=== PATIENT | female | born 1955 | race Caucasian/White ===

== ENCOUNTER → 2018-08-14 15:02 | Outpatient (CLI) | payer OTHER, SELFPAY | PROVIDERS: PCP Nurse Practitioner Family; Visit Provider Nurse Practitioner Family | DX: M85.852 Other specified disorders of bone density and structure, left thigh (principal); Z78.0 Asymptomatic menopausal state | CPT/HCPCS: 77080 ==

== ENCOUNTER → 2019-08-13 06:46 | Outpatient (CLI) | payer MEDICARE, SELFPAY ==
--- NOTE | 2019-08-13 | DI.ECHO.S_ITS ---
[facility] +---------+ : : [address] [place] : : : : [id number] : : : : Phone: [phone]+ Echocardiogram Report + + :Name: MILLIE OCHOA Study Date: 08/13/2019 Height: 64 in : :[facility] Weight: 169 lb : : Gender: Female BSA: 1.8 m2 : :: 1955 Age: 64 yrs BP: 138/98 mmHg: :Reason For Study: Conduction Disorder : : Performed By: Bere Pichardo : :Referring: STEWART LYON : + + Interpretation Summary 1) Normal left ventricular thickness, size, wall motion, and systolic function (EF 60-65%). 2) Grossly, normal right ventricular size and function. 3) There is mild aortic regurgitation. 4) Hypertension present during the study (BP 138/98mmHg). 5) No prior Echo available for comparison. Procedure: A two-dimensional transthoracic echocardiogram with color flow and Doppler was performed. The study quality was technically adequate. There is no prior echocardiogram noted for this patient. The patient was in normal sinus rhythm during the exam. Left Ventricle: The left ventricle is normal in size, wall thickness, and systolic function without any focal wall motion abnormalities. The ejection fraction is estimated to be 60-65%. Diastolic parameters suggest probable normal left ventricular diastolic function and normal filling pressures. Right Ventricle: The right ventricle grossly appears normal in size with probable normal systolic function. Atria: The left atrial size is normal. Right atrial size is normal. The interatrial septum is intact with no evidence for an atrial septal defect. Mitral Valve: The mitral valve is normal in structure and function. There is no mitral regurgitation noted. Aortic Valve: The aortic valve opens well. The aortic valve is mildly calcified. There is no aortic valve stenosis. There is mild aortic regurgitation. Tricuspid Valve: The tricuspid valve is normal in structure and function. There is trace tricuspid regurgitation. The right ventricular systolic pressure is estimated to be at least 20 mmHg based on an estimated right atrial pressure of 3 mm Hg. Pulmonic Valve: The pulmonic valve is not well seen, but is grossly normal. There is trace pulmonic regurgitation. Great Vessels: The aortic root is normal size. The ascending aorta is normal in size. The aortic arch is normal in size. The IVC is of normal diameter and collapses greater than 50% with a sniff. This suggests a low right atrial pressure of 3 mm Hg. Pericardium/ Pleura There is no pericardial effusion. There is no pleural effusion. MMode/2D Measurements & Calculations LVIDd: 4.5 cm Ao root diam: 3.6 cm LVIDs: 2.8 cm Aortic Jxn: 3.3 cm FS: 38.2 % asc Aorta Diam: 3.5 cm EPSS: 0.37 cm Ao Arch Diam (Prox Trans): 3.1 cm IVSd: 0.86 cm LVPWd: 0.68 cm LV diop. diameter/BSA (cm/m^2): 2.5 LV sys. diameter/BSA (cm/m^2): 1.5 LA dimension: 3.3 cm RA long axis: 4.6 cm LA A2 area: 19.6 cm2 RA area: 14.3 cm2 LA A4 area: 16.1 cm2 RA vol: 38.1 ml LA length (vol): 5.0 cm RA : 20.9 ml/m2 LA vol: 53.4 ml IVC diam: 1.7 cm LA vol index: 29.3 ml/m2 RVDd major: 5.7 cm RVD1 (basal): 3.5 cm RVD2 (mid): 2.6 cm Doppler Measurements & Calculations Ao V2 max: 131.1 cm/sec AI P1/2t: 656.3 msec Ao V2 mean: 91.5 cm/sec AI dec slope: 210.1 cm/sec2 Ao max P.9 mmHg Ao mean P.9 mmHg Ao V2 VTI: 32.0 cm MV E max jovany: 78.3 cm/sec TR max jovany: 221.4 cm/sec MV A max jovany: 72.0 cm/sec TR max P.6 mmHg MV E/A: 1.1 PA V2 max: 61.4 cm/sec Med Peak E' Jovany: 7.9 cm/sec PA V2 mean: 39.6 cm/sec E/E' med: 9.9 PA mean P.76 mmHg Lat Peak E' Jovany: 8.0 cm/sec PA Accel Time: 0.15 sec E/E' lat: 9.8 E/e' average: 9.9 MV dec time: 0.20 sec MV P1/2t: 60.9 msec MV P1/2t max jovany: 78.9 cm/sec MVA(P1/2t): 3.6 cm2 Reading Physician:01:12 PM
--- NOTE | 2019-08-13 10:55 | P.PCN_ITS ---
Cardiac Stress Test Report Referral & Results Date Patient Seen: 08/13/19 Requesting provider: Agustina Caraballo Indication: Right bundle branch block Rest ECG: Right bundle verses incomplete right bundle branch block Procedure Note: Today following both written and verbal informed consent, the patient was exercised according to a standard Sravan protocol. The patient exe rcised for a total of 9 minutes 2 seconds achieving a maximum heart rate of 140 for. Patient's maximum systolic blood pressure was 160. This was an estimated 10.1 MET's. There are no ST-T segment changes identified Normal heart rate and blood pressure response Function aerobic impairment way off the scale estimated her at-45% or aerobic capacity equal that of an active 40-year-old woman Rare PAC Impression: No ECG evidence of ischemia in the setting of a patient with underlying ECG abnormalities that may interfere with the ability to detect ischemic change but given patient's time on the treadmill I believe it is extremely unlikely to have any ischemia present Excellent exercise capacity Please note: Actual ECG tracings can be found in the PACS system.
== END ==
PROVIDERS: PCP Nurse Practitioner Family; Visit Provider Nurse Practitioner Family
DX: I35.1 Nonrheumatic aortic (valve) insufficiency (principal); I45.10 Unspecified right bundle-branch block
CPT/HCPCS: 93016; 93017; 93018; 93306

== ENCOUNTER → 2020-03-18 10:59 | Outpatient (CLI) | payer MEDICARE, SELFPAY ==
--- NOTE | 2020-03-18 | DI.MRI.S_ITS ---
PROCEDURE: MR KNEE RT WO CON INDICATIONS: Pain in right knee TECHNIQUE: Noncontrast sagittal PD fast spin echo and T2 fast spin echo with fat saturation, sagittal 3-D FLASH with fat saturation; coronal T1 spin echo and PD fast spin echo with fat saturation, and axial PD fast spin echo with fat saturation through the knee. COMPARISON: [facility] [place], CR, XR KNEE ARTHRITIC SERIES RT, 04/05/2019, 14:26. FINDINGS: Image quality: Excellent. Menisci: The medial extrusion of the medial meniscus. Linear horizontally oriented high T2 signal intensity traverses the posterior horn medial meniscus, demonstrating superior and inferior articular surface extension. Lateral meniscus is intact. Cruciate ligaments: The anterior and posterior cruciate ligaments appear intact. Medial structures: The medial collateral ligament appears intact, but demonstrates mild surrounding T2 signal elevation. Visualized portions of the pes anserinus tendons appear normal. No abnormal bursal fluid. Lateral structures: The lateral collateral ligament demonstrates mild T2 signal elevation of the fibular insertion site. The, long and short heads of the biceps femoris tendon appear intact. The popliteus tendon appears normal. Iliotibial band appears normal. Anterior structures: The quadriceps and patellar tendons appear intact. Patellar alignment is normal. No femoral trochlear dysplasia or ventral trochlear prominence. No edema in the infrapatellar fat pad. Bones and cartilage: No bone marrow contusions or fractures. Moderate tricompartmental periarticular osteophyte formation. Mild subchondral degenerative marrow edema within the medial femoral condyle and medial tibial plateau. Severe articular cartilage loss diffusely overlies the weightbearing aspects of the medial femoral condyle and medial tibial plateau. Mild articular cartilage loss overlies the medial and lateral patellar facets. Joint space: There is a small knee joint effusion and a small Dhaliwal's cyst. Normal appearing synovial plicae are incidentally noted. IMPRESSION: 1. Tricompartmental osteoarthritis with associated articular cartilage loss. 2. MCL strain. 3. Partial thickness tear the lateral collateral ligament. 4. Medial meniscal tear and extrusion. 5. Knee joint effusion and Dhaliwal's cyst. Dictated by: Jacqueline Easton M.D. on 03/18/2020 at 11:50 Approved by: Jacqueline Easton M.D. on 03/18/2020 at 11:53
== END ==
PROVIDERS: PCP Internal Medicine; Referring Provider Internal Medicine; Visit Provider Internal Medicine
DX: M25.561 Pain in right knee (principal); M17.11 Unilateral primary osteoarthritis, right knee; S83.411A Sprain of medial collateral ligament of right knee, initial encounter; S83.421A Sprain of lateral collateral ligament of right knee, initial encounter; S83.241A Other tear of medial meniscus, current injury, right knee, initial encounter; M25.461 Effusion, right knee; M71.21 Synovial cyst of popliteal space [Baker], right knee
CPT/HCPCS: 73721

== ENCOUNTER → 2020-10-29 11:01 | Outpatient (CLI) | payer MEDICARE, SELFPAY ==
--- NOTE | 2020-10-29 | DI.US.S_ITS ---
PROCEDURE: US PELVIC COMPLETE INDICATIONS: POSTMENOPAUSAL BLEEDING TECHNIQUE: Real-time scanning was performed of the pelvic organs, with image documentation. Additional endovaginal scanning was necessary due to incomplete visualization of the adnexal and endometrial structures by transabdominal scanning. COMPARISON: None. FINDINGS: Transabdominal scanning: Limited scanning through the kidneys shows no hydronephrosis. No pathologic free abdominal or pelvic fluid. Endovaginal scanning: Uterus: Uterus is normal in size at 8.5 x 4.4 x 5.8 cm. The endometrium measures 11 mm in combined thickness. No focal lesions can be seen along the endometrial stripe. Ovaries: The right ovary measures 2.7 x 2.1 x 1.7 cm. The left ovary measures 3.5 x 2.5 x 1.8 cm. The ovaries have a normal sonographic appearance. Normal appearing arterial waveforms are confirmed to each ovary. No adnexal masses are seen. IMPRESSION: The endometrial stripe is thickened in this patient with a given history of postmenopausal bleeding. Differential diagnosis includes endometrial neoplasm and endometrial hyperplasia. Recommend correlation with endometrial histology, as clinically appropriate. Dictated by: Daniel Glass M.D. on 10/29/2020 at 12:29 Approved by: Daniel Glass M.D. on 10/29/2020 at 12:30
== END ==
PROVIDERS: PCP Internal Medicine; Referring Provider Internal Medicine; Visit Provider Internal Medicine
DX: N95.0 Postmenopausal bleeding (principal)
CPT/HCPCS: 76830; 76856

== ENCOUNTER 2021-01-07 10:15 | Emergency (ER) | payer MEDICARE, SELFPAY ==
[2021-01-07 10:18] VITALS: BP 150/82; PULSE 89; RESP 14; TEMP 36.9; O2SAT 98; BMI 26.7
--- NOTE | 2021-01-07 10:24 | PC.NURSE ---
pt has discoloration left calf from injury approx 6 months ago.
--- NOTE | 2021-01-07 10:25 | DI.US.S_ITS ---
PROCEDURE: US PERIPH VENOUS LOW EXTREM LT INDICATIONS: PAIN AND SWELLING LEFT LEG TECHNIQUE: Real-time imaging, as well as color and pulse Doppler interrogation, were performed of the lower extremity deep veins from the inguinal ligament to the popliteal fossa. COMPARISON: None. FINDINGS: The common femoral, femoral and popliteal veins are normally compressible, and free of intraluminal thrombus. Color and pulse Doppler demonstrate normal phasic intraluminal flow. There is normal augmentation response to distal compression maneuver. Additional, dedicated ultrasound scanning is performed at the area of clinical concern at the left posterior/inferior calf/ankle. No focal ultrasound abnormalities are seen within this region. IMPRESSION: Negative for deep venous thrombosis. Dictated by: Daniel Glass M.D. on 01/07/2021 at 10:07 Approved by: Daniel Glass M.D. on 01/07/2021 at 10:08
--- NOTE | 2021-01-07 10:26 | ED.EXTPRO ---
HPI - Extremity Problem General Chief complaint: Extremity Problem,Nontraumatic Stated complaint: left lower leg x3 days Time Seen by Provider: 01/07/21 10:17 Source: patient Mode of arrival: Ambulatory Limitations: no limitations History of Present Illness HPI Narrative: 65-year-old postmenopausal woman otherwise healthy presents with left calf pain. She notes that 6 months ago she had a mechanical injury were gait hit her in the back of the calf she was expecting to find laceration but was only bruised. It has continued with visible bruising since that point and over the last 3 days the bruising has become more prominent, swelling has gotten a bit worse and pain has become much more difficult to ignore. She describes severe pain and cramping at night. She is still able to walk and describes no other injuries. She has had no fevers, cough, chills, palpitations or dyspnea. She does note that she has been increasingly anxious over the swelling in her leg with concerns for DVT as she does live on a non [facility]. She has had no vomiting, diarrhea or skin changes. No numbness or tingling distally. Related Data Previous Rx's Medication Instructions Recorded progesterone micronized 200 mg 200 mg PO BEDTIME 30 Days #30 cap 11/28/20 capsule Allergies Allergy/AdvReac Type Severity Reaction Status Date / Time No Known Drug Allergies Allergy Verified 01/07/21 10:21 Review of Systems Review of Systems Narrative: Remainder of review of systems including constitutional, ENT, cardiovascular, respiratory, GI, , musculoskeletal, skin, neurologic and psychiatric systems reviewed and are unremarkable except as noted in HPI. Patient History Medical History On hormone replacement therapy Social History Smoking Status: Unknown if ever smoked Smoking Status: Unknown if ever smoked alcohol intake frequency: 0-2 drinks per day Substance Use Type: does not use Exam Narrative Exam Narrative: General: Alert appropriate in no acute distress Respiratory: Able to speak in full sentences, no obvious respiratory distress Skin: No obvious rashes, warm and dry Neurologic: Grossly intact no obvious asymmetries or abnormalities Psych:appropriate insight and affect, cooperative Extremity: Left lower extremity slightly more swollen than the right. Recent Efudex use for both calves so skin changes as would be expected. She does have a 3 x 3 area of bruising on the distal posterior calf without any bruising down around the ankle or heel. There is no tenderness to palpation or manipulation of her Achilles tendon and she has no tenderness with range of motion of the foot. Initial Vital Signs Initial Vital Signs: Vital Signs Temperature 98.4 F 01/07/21 10:18 Pulse Rate 89 01/07/21 10:18 Respiratory Rate 14 01/07/21 10:18 Blood Pressure 150/82 H 01/07/21 10:18 Pulse Oximetry 98 01/07/21 10:18 Course Orders Ordered: ED Orders 01/07/21 10:25 US periph venous low extrem lt Stat Vital Signs Vital signs: Vital Signs - 8 hr 01/07/21 10:18 Temperature 98.4 F Pulse Rate 89 Respiratory Rate 14 Blood Pressure 150/82 H Pulse Oximetry 98 MDM - Extremity (Nontraumatic) Imaging Data US - DVT: Radiologist's Impression: FINDINGS: The common femoral, femoral and popliteal veins are normally compressible, and free of intraluminal thrombus. Color and pulse Doppler demonstrate normal phasic intraluminal flow. There is normal augmentation response to distal compression maneuver. Additional, dedicated ultrasound scanning is performed at the area of clinical concern at the left posterior/inferior calf/ankle. No focal ultrasound abnormalities are seen within this region. IMPRESSION: Negative for deep venous thrombosis. Dictated by: Daniel Glass M.D. on 01/07/2021 at 10:07 [facility] Narrative Medical decision making narrative: 65-year-old woman with an injury to the left calf 6 months ago but significant change to pain overall 3 days ago. She does not have a deep venous thrombosis Will suggest ibuprofen and Tylenol along with compression socks. Will refer her to Orthopedic surgery for further evaluation if she is still having pain and tenderness in the next week. The next step in sorting this out may well be advanced imaging and possibly MRI. She is safe for home discharge today Discharge Plan Departure Patient Disposition: Home Clinical Impression: Pain of left calf Instructions: DI for Leg Pain Activity Restrictions/Additional Instructions: Thank you for coming in today You do not have a blood clot in your leg I suspect that you simply re-injured your calf about 3 days ago and the swelling in fullness is what is causing the severity of the pain and cramping at night. Please try compression socks ([employer] has a good supply of running compression socks that are far more comfortable than medical ones). Using 400 mg of ibuprofen (2 [id number] pills) and 1 Tylenol every 6 hours can be very helpful in controlling pain. Elevating her leg can also help. Please schedule appointment for mid next week with the orthopedic office. If you are still having symptoms please follow-up. If everything has improved by then you can cancel that appointment. If things worsen, please return to the ER Prescriptions: No Action progesterone micronized [Prometrium] 200 mg capsule 200 mg PO BEDTIME 30 Days Qty: 30 RF: 11 Referrals: Gita Og MD [Physician] - Alessandra Cortés MD [Primary Care Provider] -
[2021-01-07 11:50] VITALS: BP 136/77; PULSE 59; RESP 20; O2SAT 94
== END 2021-01-07 12:01 | disposition home or self-care (01) ==
PROVIDERS: Emergency Provider Emergency Medicine; PCP Family Medicine
DX: M79.662 Pain in left lower leg (principal)
CPT/HCPCS: 93971; 99283

== ENCOUNTER → 2021-03-11 08:01 | Outpatient (CLI) | payer MEDICARE, SELFPAY ==
[2021-03-11 14:52] LABS: COVID19 -Nasal RAPID Negative (Negative)
== END ==
PROVIDERS: PCP Family Medicine; Visit Provider Obstetrics & Gynecology
DX: Z01.812 Encounter for preprocedural laboratory examination (principal); Z20.822 Contact with and (suspected) exposure to COVID-19
CPT/HCPCS: 87635

== ENCOUNTER 2021-03-12 08:21 | Day surgery (SDC) | payer MEDICARE, SELFPAY ==
[2021-03-09 13:25] VITALS: BMI 28.3
[2021-03-12] VITALS (7 sets, daily range): BP systolic 104–145; BP diastolic 67–89; PULSE 56–59; RESP 12–20; TEMP 36.3–37; O2SAT 95–100; BMI 26.9
--- NOTE | 2021-03-12 | PATH_ITS ---
[facility] Accession Number: [id number] . 01 Material submitted: . endometrium - ENDOMETRIAL CURETTING . 01 Clinical history: . D/C HYSTEROSCOPY W/POSS POLYPECTOMY . 02 Diagnosis: Endometrial Curetting: Portions of endometrial stromal tissue with very scant endometrial glandular elements; negative for glandular hyperplasia, cytologic atypia, or malignancy. Portions of lower uterine segment; negative for glandular hyperplasia, glandular dysplasia, cytologic atypia, or malignancy. MRV 03/18/2021 1353 Local . 02 Electronically signed: . Marysol Lawson MD, Pathologist NPI- [id number] . 01 Gross description: . The specimen is received in formalin labeled endometrial biopsy and consists of multiple lopez-pink fragments of soft tissue admixed with mucus, measuring 3.0 x 2.5 x 0.4 cm in aggregate. The specimen is filtered and entirely submitted in cassette A1. ([id number]) /[facility] 03/13/2021 1644 Local . 02 Pathologist provided ICD-10: N85.00, N95.0 . 02 CPT . 316753 Performed at: 01 [facility] [address], [place], [place] [id number] MD Jona Sanford MD Phone: [phone] Performed at: 02 [facility] [address] [place], [place] [id number] MD Bhumi Cardozo MD Phone: [phone]
--- NOTE | 2021-03-12 08:40 | PM.PREOP ---
Pre-operative Note COVID-19 COVID-19 status: Negative Result date/Date tested (Pos, Neg/Pending): 03/11/21 Interval Note History & Physical reviewed/Exam performed by Physician: Yes Changes to H&P: No H&P completed within 30 days and has changed as indicated here:: 03/12/21
--- NOTE | 2021-03-12 08:50 | SUR.OPER ---
Lithotomy on padded OR bed, head on pillow, arms secured on padded arm boards at <90 degrees abduction. Legs secured in padded yellow fins stirrups.
[2021-03-12] MEDS: LACTATED RINGERS 1,000 ML 100 ML IV (08:51)
--- NOTE | 2021-03-12 09:03 | PM.HP.1 ---
History of Present Illness History of Present Illness Date Patient Seen: 03/12/21 Time Patient Seen: 09:03 Chief complaint: D&C HYSTEROSCOPY W/POSS POLYPECTOMY Narrative: Patient is a 65-year-old 2 para 2 who presents for a D&C hysteroscopy with possible polypectomy. She has had a thickened endometrial lining and postmenopausal bleeding. Patient History Medical History On hormone replacement therapy Family & Social History Social History: household members spouse Tobacco & Substance use: Smoking Status Never smoker alcohol intake current alcohol intake frequency 0-2 drinks per day Substance Use Type does not use Meds Home Medications and Allergies Home Medications Medication Instructions Recorded Confirmed Type progesterone micronized 200 mg 200 mg PO BEDTIME 30 Days #30 cap 11/28/20 03/12/21 Rx capsule estradiol 1 patch TRANSDERMAL WEEKLY 03/12/21 03/12/21 History Allergies Allergy/AdvReac Type Severity Reaction Status Date / Time No Known Drug Allergies Allergy Verified 02/11/21 14:12 Exam Vital Signs (past 8 hours): - 03/12/21 08:51 Temperature 98.6 F Pulse Rate 59 L Respiratory Rate 12 Blood Pressure 132/81 Pulse Oximetry 99 Oxygen Delivery Method Room Air Narrative Exam Narrative: HEENT: No thyromegaly, no anterior cervical or supraclavicular lymphadenopathy. Lungs:Clear to auscultation bilaterally, no wheezes. Cardiovascular: Regular rate and rhythm, no murmurs, rubs, or gallops. Abdomen: No scars. No hepatosplenomegaly. No masses palpable. External genitalia: Normal Vagina: Normal Cervix: Normal Bimanual exam: 7 Week size uterus. Mobile. No adnexal masses or tenderness. Ultrasound: 11 mm endometrial lining Assessment & Plan Assessment & Plan narrative: Assessment: 65-year-old 2 para 2 with endometrial hyperplasia and postmenopausal bleeding Plan: D&C hysteroscopy with possible polypectomy The risks, benefits, and alternatives to the procedure were explained to the patient. The risks including bleeding, infection, and uterine perforation. She understands these risks and agrees to proceed. A full par Q was held and consent form was signed. COVID-19 COVID-19 status: Negative Result date/Date tested (Pos, Neg/Pending): 03/11/21 Time Spent With Patient Time with patient: less than 15 minutes
--- NOTE | 2021-03-12 09:37 | PM.GYNOP.1 ---
Operative Date/Time/Diagnoses Date of procedure: 03/12/21 Time of procedure: 09:37 Pre-op diagnosis: Endometrial hyperplasia Postmenopausal bleeding Post-op diagnosis: same Procedure & Clinicians Procedure: Procedures Operation Date: 03/12/21 11:00 Actual Procedures Side Surgeon p D&C Hysteroscopy Malgorzata Hannah MD Indications: Postmenopausal bleeding Endometrial hyperplasia by ultrasound Surgeon: Malgorzata Hannah Anesthesia Type: General (LMA) Operative Notes Findings: Eight week size anteverted uterus Both fallopian tube ostia observed Synechiae at the left cornua Slightly thickened lining on the anterior wall of the uterus Closure Type: not applicable Specimen(s): endometrial curettings Estimated blood loss (mL): 5 Blood products transfused: none Procedure in detail: After informed consent was obtained, the patient was taken to the operating room where she was placed in the dorsal supine position. After adequate LMA general anesthesia was achieved, she was placed in the dorsal lithotomy position, and prepped and draped in the usual sterile fashion. A time-out was performed. A bivalve speculum was placed into the vagina and the anterior lip of the cervix grasped with a single-tooth tenaculum. The cervical os was sequentially dilated to the # 9 Hegar dilator. The hysteroscope passed easily into the endometrial cavity. Both fallopian tube ostia were observed. There was a synechiae at the left cornua of the uterus. There was slightly thickened endometrium on the anterior wall the uterus near the fundus. The hysteroscope was removed. Sharp curettage was performed yielding moderate amount of endometrial curettings. The instruments were removed from the uterus. Single-tooth tenaculum was removed from the anterior lip of the cervix. The bivalve speculum was removed from the vagina. Sponge, lap, and instrument counts were correct x2. The patient tolerated the procedure well, and was taken to PACU in stable condition. Complications: none Post-operative Condition: stable Disposition: PACU Plan for aftercare: Home after recovery
--- NOTE | 2021-03-12 10:21 | SUR.PHASEII ---
Pt given discharge instructions. Pt states she understands discharge instructions. pt states her pain is very tolerable and refused medication. Pt very pleasant and cooperative and states she is ready to go home.
--- NOTE | 2021-03-12 10:23 | SUR.PHASEII ---
Pt discharged with Alina FINN.
== END 2021-03-12 10:23 | disposition home or self-care (01) ==
PROVIDERS: PCP Family Medicine; Referring Provider Obstetrics & Gynecology; Visit Provider Obstetrics & Gynecology
PROC: 0UDB8ZZ Extraction of Endometrium, Via Natural or Artificial Opening Endoscopic (ICD-10-PCS; CPT 58558; principal; 2021-03-12 11:00)
DX: N95.0 Postmenopausal bleeding (principal); N85.00 Endometrial hyperplasia, unspecified
CPT/HCPCS: 58558; J1100; J1885; J2405; J2704; J3010

== ENCOUNTER → 2021-06-25 10:37 | Outpatient (CLI) | payer MEDICARE, SELFPAY ==
--- NOTE | 2021-06-25 | DI.RAD.S_ITS ---
PROCEDURE: XR DEXA AXIAL SKELETON INDICATIONS: OSTEOPENIA COMPARISON: [facility], CR, XR DEXA AXIAL SKELETON, 08/14/2018, 15:43. FINDINGS: This blank DEXA report has been sent in error by the PACS system. The correct and complete report will be forthcoming in 1-2 days. Thank you for your patience and understanding. Dictated by: Anjana Lovelace MD, PhD on 06/25/2021 at 10:52 Approved by: Anjana Lovelace MD, PhD on 06/25/2021 at 10:52
== END ==
PROVIDERS: PCP Family Medicine; Referring Provider Family Medicine; Visit Provider Family Medicine
DX: M85.852 Other specified disorders of bone density and structure, left thigh (principal)
CPT/HCPCS: 77080

== ENCOUNTER → 2021-08-27 16:21 | Outpatient (CLI) | payer MEDICARE, SELFPAY ==
--- NOTE | 2021-08-27 16:22 | DI.MG.S_ITS ---
BILATERAL DIGITAL SCREENING MAMMOGRAM 3D/2D WITH CAD: 08/27/2021 Comparison is made to exams dated: 05/03/2017 mammogram - out side, 06/02/2015 mammogram, 11/20/2012 mammogram, 11/20/2012 ultrasound, and 03/24/2012 mammogram - outside location. The tissue of both breasts is heterogeneously dense. This may lower the sensitivity of mammography. Current study was also evaluated with a Computer Aided Detection (CAD) system. There are benign vascular calcifications in the left breast. No significant masses, calcifications, or other findings are seen in either breast. There has been no significant interval change. IMPRESSION: BENIGN There is no mammographic evidence of malignancy. A 1 year screening mammogram is recommended. This exam was interpreted at Station ID: [id number]. NOTE: For mammograms, a report in lay terms will be sent to the patient. Approximately 15% of breast malignancies will not be visualized mammographically. In the management of a palpable breast mass, a negative mammogram must not discourage biopsy of a clinically suspicious lesion. Electronically Signed By: Cayla chatman/kim:08/28/2021 09:07:27 letter sent: Normal Exam ACR BI-RADS Category 2: Benign Finding(s) [id number]
== END ==
PROVIDERS: PCP Family Medicine; Referring Provider Family Medicine; Visit Provider Family Medicine
DX: Z12.31 Encounter for screening mammogram for malignant neoplasm of breast (principal)
CPT/HCPCS: 77063; 77067

== ENCOUNTER → 2022-06-02 16:09 | Outpatient (CLI) | payer MEDICARE, SELFPAY ==
[2022-06-02 17:55] LABS: COVID19 -Nasal RAPID Negative (Negative)
== END ==
PROVIDERS: PCP Family Medicine; Visit Provider Obstetrics & Gynecology
DX: Z20.822 Contact with and (suspected) exposure to COVID-19 (principal); Z01.812 Encounter for preprocedural laboratory examination
CPT/HCPCS: 87635; C9803

== ENCOUNTER 2022-06-03 08:32 | Day surgery (SDC) | payer MEDICARE, SELFPAY ==
[2022-05-31 14:43] VITALS: BMI 29.7
--- NOTE | 2022-06-03 | PATH_ITS ---
[facility] Accession Number: [id number] No. of containers..01 Tissue . 01 Material submitted: . endometrium - ENDOMETRIAL CURETTINGS . 01 Diagnosis: Endometrial Curettings: Portions of myometrium with associated endometrium; negative for atypia or malignancy. Endometrial tissue, negative for glandular hyperplasia, cytologic atypia, or malignancy. Avulsed portion of squamous mucosa; negative for dysplasia or malignancy. . MRV 06/07/2022 1645 Local . 01 Electronically signed: . Marysol Lawson MD, Pathologist NPI- [id number] . 01 Gross description: . ENDOMETRIAL CURETTINGS: Received in formalin are minute fragments of mucoid and hemorrhagic material measuring 3.0 x 2.5 x 0.3 cm in aggregate. Submitted in toto in 2 cassettes. /CPE 06/04/2022 0813 Local . 01 Pathologist provided ICD-10: N95.0 . 01 CPT . 039851 Specimen Comment: A courtesy copy of this report has been sent to [phone] Performed at: [facility] [address] [place] [address], [place], [place] [id number] MD Jona Sanford MD Phone: [phone]
[2022-06-03 08:46] VITALS: BMI 29.7
[2022-06-03 08:53] VITALS: BP 130/80; PULSE 51; RESP 16; TEMP 36.4; O2SAT 99
[2022-06-03] MEDS: LACTATED RINGERS 1,000 ML 42 ML IV ×2 (09:04→11:57)
--- NOTE | 2022-06-03 09:41 | PM.PREOP ---
Pre-operative Note COVID-19 COVID-19 status: Negative Result date/Date tested (Pos, Neg/Pending): 06/02/22 Criteria for continued procedure: Expected advancement of disease process Interval Note History & Physical reviewed/Exam performed by Physician: Yes Changes to H&P: No
--- NOTE | 2022-06-03 09:42 | P.HPOB_ITS ---
History of Present Illness History of Present Illness Reason for admission: vaginal bleeding Narrative: Denisha Beach is a 67 year old para 3 female admitted for hysteroscopy and endometrial ablation for postmenopausal bleeding. Patient has been on hormone replacement therapy. She has had multiple ultrasounds and endometrial biopsy as well as a hysteroscopy D&C in February of 2021 with negative findings. Patient was denied use of Mirena IUD so is here for hysteroscopy with endome trial ablation. [facility] Medical History On hormone replacement therapy Surgical History History of gynecologic surgery (03/12/21) Social History household members: spouse Smoking Status: Never smoker alcohol intake: current Meds Home Medications and Allergies Home Medications Medication Instructions Recorded Confirmed Type estradiol 0.05 mg/24 hr weekly 1 patch transdermal WEEKLY 03/12/21 06/03/22 History transdermal patch progesterone micronized 200 mg See Rx Instructions .Route 12/09/21 06/03/22 Rx capsule .COMPLEX #30 caps Allergies Allergy/AdvReac Type Severity Reaction Status Date / Time No Known Drug Allergies Allergy Verified 06/03/22 08:45 Review of Systems Review of Systems Narrative: Patient denies any current issues with headaches, chest pains or shortness of breath. No abdominal pain. She continues to have bleeding. Exam Vital Signs (past 8 hours): - 06/03/22 08:53 Temperature 97.5 F L Pulse Rate 51 L Respiratory Rate 16 Blood Pressure 130/80 Pulse Oximetry 99 Oxygen Delivery Method Room Air Oxygen Delivery Method Room Air Narrative Exam Narrative: HEENT exam within normal limits. Lungs are clear to auscultation percussion. Heart is regular rate and rhythm no S3-S4 murmurs. Abdomen is soft, nontender with no palpable organomegaly. Pelvic exam was not repeated previous pelvic exams show 7 to 8 week size uterus with no adnexal masses. Extremities without edema and nontender. Assessment & Plan Assessment and plan (1) Postmenopausal bleeding: Status: Acute Assessment & Plan narrative: Patient with postmenopausal bleeding for hysteroscopy and endometrial ablation. Consent form for procedure was reviewed with the patient. Minimal risk of reaction to medication, perforation of the uterus that could require additional surgery or opening the abdomen to repair. Minimal risk of infection. Possibility patient will continue to have bleeding despite the procedure. COVID-19 COVID-19 status: Negative Result date/Date tested (Pos, Neg/Pending): 06/02/22 Time Spent With Patient Time with patient: less than 30 minutes Critical Care time: I spent a total of [] minutes of critical care time on this patient's care today; this time is exclusive of procedural time.
--- NOTE | 2022-06-03 10:19 | SUR.PREOP ---
Addendum entered by Stephy Hassan R.N. 06/03/22 10:24: 06/03/[id number] has call light. no special needs at this time. entertaining self on cellphone. Original Note: 06/03/[id number]-bokwpdc informed case delayed due to emergency 2nd case. patient updated ride with new eta for package pick up.
--- NOTE | 2022-06-03 11:45 | SUR.OPER ---
Lithotomy on padded OR bed, head on pillow, arms secured on padded arm boards at <90 degrees abduction. Legs secured in padded yellow fins stirrups.
--- NOTE | 2022-06-03 12:08 | PM.OP.1 ---
Operative Date/Time/Diagnoses Date of procedure: 06/03/22 Time of procedure: 12:08 Pre-op diagnosis: Postmenopausal bleeding Post-op diagnosis: same Procedure & Clinicians Procedure: Hysteroscopy with endometrial ablation Same procedure as scheduled: Yes (Patient was scheduled for NovaSure which was not working so a loop and ball) Indications: Postmenopausal bleeding Surgeon: Shavon Armendariz Click Yes if Unassisted: Yes Anesthesia Type: General Operative Notes Findings: No obvious intrauterine pathology with normal exam under anesthesia. Closure Type: not applicable Specimen(s): other (Endometrial biopsies) Estimated Blood Loss (mL): 10 Blood products transfused: none Procedure in detail: The patient was brought to the operating room where she underwent general anesthesia. She was placed in low stirrups She was prepped and draped in usual sterile fashion with pulsatile stockings in place and functional, warming in place. Her bladder was drained with in and out catheter. A single-tooth tenaculum was placed on the anterior lip of the cervix and the uterus dilated to #8 Hegar dilator. The hysteroscope was placed into the uterus with a sorbitol solution running and under constant suction. The NovaSure device was not working so the ball cautery set at 60 w of coag was used to cauterize the tubal ostia, fundus and the internal os. The resecting loop set at 80 W of cutting was used to resect the endometrium. The ball cautery was replaced to cauterize any bleeding spots. The endometrial curettage and resection areas were sent to pathology. The patient went to recovery room in good condition counts of instruments and sponges were correct. The sorbitol solution I=O approximately 3000 mL. Complications: none Post-operative Condition: stable Disposition: same day surgery Plan for aftercare: Patient will schedule a telehealth appointment in 2 weeks.
[2022-06-03 12:10] VITALS: BP 146/83; PULSE 67; RESP 17; TEMP 36.4; O2SAT 95
[2022-06-03 12:14] VITALS: BP 144/92; PULSE 62; RESP 16; O2SAT 98
[2022-06-03 12:23] VITALS: BP 146/65; PULSE 60; RESP 16; TEMP 36.3; O2SAT 100
[2022-06-03 12:37] VITALS: BP 138/82; PULSE 54; RESP 16; O2SAT 98
--- NOTE | 2022-06-03 12:42 | SUR.PHASEII ---
unable to contact . Left multiple messages. Pt attempting to call on cell phone.
== END 2022-06-03 12:50 | disposition home or self-care (01) ==
PROVIDERS: PCP Family Medicine; Referring Provider Obstetrics & Gynecology; Visit Provider Specialist
PROC: 0U5B8ZZ Destruction of Endometrium, Via Natural or Artificial Opening Endoscopic (ICD-10-PCS; CPT 58563; principal; 2022-06-03 10:15)
DX: N95.0 Postmenopausal bleeding (principal)
CPT/HCPCS: 58563; J3010

== ENCOUNTER → 2022-09-21 14:32 | Outpatient (CLI) | payer MEDICARE, SELFPAY ==
--- NOTE | 2022-09-21 | DI.MG.S_ITS ---
BILATERAL DIGITAL SCREENING MAMMOGRAM 3D/2D WITH CAD: 09/21/2022 CLINICAL: Routine screening. Comparison is made to exams dated: 08/27/2021 mammogram - [facility], 05/03/2017 mammogram - out side, and 06/02/2015 mammogram - outside location. Both breasts are heterogeneously dense, which may obscure small masses (category c / 51-75% glandular tissue). Current study was also evaluated with a Computer Aided Detection (CAD) system. There are benign vascular calcifications in the left breast. No significant masses, calcifications, or other findings are seen in either breast. There has been no significant interval change. IMPRESSION: BENIGN There is no mammographic evidence of malignancy. A 1 year screening mammogram is recommended. Based on the Tyrer Cuzick model (a risk assessment model) the patient's lifetime risk is 6.3% and her 10 year risk is 3.5%. According to the ACR, ACS, and NCCN guidelines, an annual breast MRI exam along with mammogram is recommended if the patient's lifetime risk is 20% or greater. This exam was interpreted at Station ID: [id number]. NOTE: For mammograms, a report in lay terms will be sent to the patient. Approximately 15% of breast malignancies will not be visualized mammographically. In the management of a palpable breast mass, a negative mammogram must not discourage biopsy of a clinically suspicious lesion. Electronically Signed By: Nickolas tran/kim:09/21/2022 16:37:52 letter sent: Normal Exam ACR BI-RADS Category 2: Benign Finding(s) 3342F
== END ==
PROVIDERS: PCP Family Medicine; Referring Provider Family Medicine; Visit Provider Family Medicine
DX: Z12.31 Encounter for screening mammogram for malignant neoplasm of breast (principal)
CPT/HCPCS: 77063; 77067

== ENCOUNTER → 2023-05-18 17:07 | Outpatient (CLI) | payer MEDICARE, SELFPAY ==
--- NOTE | 2023-05-18 | DI.RAD.S_ITS ---
PROCEDURE: XR FOOT LT 2V INDICATIONS: foot pain TECHNIQUE: 3 views of the foot were acquired. COMPARISON: [facility], CR, XR FOOT 3 VIEWS WEIGHT BEARING BILATERAL, 12/16/2022, 14:43. FINDINGS: Bones: No fractures or dislocations. No suspicious bony lesions. Mild hallux valgus metatarsus prima varus alignment and medial bunion. Mild 1st MTP and diffuse interphalangeal joint space narrowing with mild periarticular osteophyte formation. Soft tissues: No tibiotalar joint effusion. Achilles tendon appears normal. IMPRESSION: 1. Hallux valgus alignment and medial bunion. 2. Mild 1st MTP and diffuse interphalangeal joint degeneration. Dictated by: Tino Goode RR Interpreted: Miko Moreira MD on 05/18/2023 at 20:25 Transcribed by: LEOLA on 05/18/2023 at 20:26 Approved by: Miko Moreira M.D. on 05/19/2023 at 12:54
== END ==
PROVIDERS: PCP Family Medicine; Referring Provider Family Medicine; Visit Provider Family Medicine
DX: M19.072 Primary osteoarthritis, left ankle and foot (principal); M20.12 Hallux valgus (acquired), left foot; M21.612 Bunion of left foot; M79.672 Pain in left foot
CPT/HCPCS: 73620

== ENCOUNTER → 2023-06-09 08:34 | Outpatient (CLI) | payer MEDICARE, SELFPAY ==
--- NOTE | 2023-06-09 | DI.MRI.S_ITS ---
PROCEDURE: MRFOOT LT WO CON INDICATIONS: Pain in left foot TECHNIQUE: Noncontrast sagittal T1 spin echo and T2 fast spin echo with fat saturation, long-axis T1 spin echo and T2 fast spin echo with fat saturation, short-axis T1 spin echo and T2 fast spin echo with fat saturation through the forefoot. COMPARISON: [facility], CR, XR FOOT LT 2V, 05/18/2023, 17:06. FINDINGS: Image quality: Excellent. Bones and joints: Ifem-zc-lnanlqck midfoot and forefoot joint osteoarthritic changes are seen with joint space narrowing, subchondral sclerosis and subcortical cystic changes more notably at 1st MTP joint and 1st interphalangeal joint. There is mild marrow edema involving 2nd and 3rd metatarsal shafts without discrete fracture line. Similar edema involving 1st metatarsal neck is also seen without discrete fracture line. No suspicious bony lesions. Soft tissues: Mild soft tissue edema and swelling over dorsal aspect of 1st through 3rd MTP joint is seen. The visualized plantar foot muscles demonstrate normal signal and bulk. Visualized flexor and extensor tendons appear intact, without tenosynovitis. The distal insertions of the peroneus brevis and longus tendons appear intact. The principal Lisfranc ligament appears intact. No soft tissue ganglion cysts or bursal fluid collections. Sagittal images demonstrate no evidence for plantar plate tears. IMPRESSION: 1. 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 2. Marrow edema involving 1st metatarsal neck, mid to distal shaft of 2nd and 3rd metatarsal bones without definite fracture line. Finding is concerning for abnormal stress reaction versus early stress fracture. Clinical and radiographic follow-up is recommended. 3. Forefoot tendons and ligaments are grossly intact. No gross muscle signal abnormality. Mild soft tissue swelling over dorsal and medial aspect of 1st through 3rd MTP joints. Dictated by: Miko Moreira M.D. on 06/09/2023 at 11:05 Approved by: Miko Moreira M.D. on 06/09/2023 at 11:14
== END ==
PROVIDERS: PCP Family Medicine; Referring Provider Family Medicine; Visit Provider Family Medicine
DX: M19.072 Primary osteoarthritis, left ankle and foot (principal); M79.672 Pain in left foot
CPT/HCPCS: 73718

== ENCOUNTER → 2023-09-30 14:36 | Outpatient (CLI) | payer MEDICARE, SELFPAY ==
--- NOTE | 2023-09-30 | DI.MG.S_ITS ---
BILATERAL DIGITAL SCREENING MAMMOGRAM 3D/2D WITH CAD: 09/30/2023 CLINICAL: Routine screening. Family history of breast cancer. Comparison is made to exams dated: 09/21/2022 mammogram, 08/27/2021 mammogram - [facility], and 05/03/2017 mammogram - out side. Both breasts are heterogeneously dense, which may obscure small masses (category c / 51-75% glandular tissue). Current study was also evaluated with a Computer Aided Detection (CAD) system. No significant masses, calcifications, or other findings are seen in either breast. There has been no significant interval change. IMPRESSION: NEGATIVE There is no mammographic evidence of malignancy. A 1 year screening mammogram is recommended. Based on the Tyrer Cuzick model (a risk assessment model) the patient's lifetime risk is 5.9% and her 10 year risk is 3.5%. According to the ACR, ACS, and NCCN guidelines, an annual breast MRI exam along with mammogram is recommended if the patient's lifetime risk is 20% or greater. This exam was interpreted at Station ID: [id number]. NOTE: For mammograms, a report in lay terms will be sent to the patient. Approximately 15% of breast malignancies will not be visualized mammographically. In the management of a palpable breast mass, a negative mammogram must not discourage biopsy of a clinically suspicious lesion. Electronically Signed By: Christin Marrero M.D., PH.D devi/kim:10/02/2023 14:17:37 letter sent: Normal Exam ACR BI-RADS Category 1: Negative 3341F
--- NOTE | 2023-09-30 | DI.RAD.S_ITS ---
Bone Density Report Name: MILLIE OCHOA Age: 68 Sex: Female Ethnicity: White Date of : 1955 Indication: postmenopausal; screening for osteoporosis; Referring Provider: ОЛЬГА WILLARD Study: Bone densitometry was performed. Exam Date: September 30, 2023 Accession number: [id number] Bone Density: Region BMD T-score Z-score Classification AP Spine(L1-L4) 0.981 -0.6 1.5 Normal Femoral Neck (Left) 0.697 -1.4 0.4 Osteopenia Total Hip (Left) 0.892 -0.4 1.1 Normal Femoral Neck (Right) 0.696 -1.4 0.4 Osteopenia Total Hip (Right) 0.852 -0.7 0.7 Normal Total Hip Mean 0.872 -0.6 0.9 Normal World Health Organization criteria for BMD impression classify patients as: Normal (T-score at or above -1.0), Osteopenia (T-score between -1.0 and -2.5), or Osteoporosis (T-score at or below -2.5). 10-year Fracture Risk(1): Major Osteoporotic Fracture 9.4% Hip Fracture 1.2% Reported Risk Factors: [place] (), Neck BMD=0.696, BMI=29.2 (1) FRAX(R) Version 3.08. Fracture probability calculated for an untreated patient. Fracture probability may be lower if the patient has received treatment. Previous Exams: -- Region Exam Age BMD T-score BMD Change BMD Change Date g/cm2 vs Baseline vs Previous -- AP Spine (L1-L4) 09/30/2023 68 0.981 -0.6 -0.070 (-6.6%)# -0.107 (-9.9%)# 06/25/2021 66 1.088 0.4 0.038 (3.6%)* 0.038 (3.6%)* 08/14/2018 63 1.051 0.0 Total Hip(Left) 09/30/2023 68 0.892 -0.4 0.046 (5.5%)# 0.068 (8.2%)# 06/25/2021 66 0.824 -1.0 -0.022 (-2.5%) -0.022 (-2.5%) 08/14/2018 63 0.846 -0.8 Total Hip(Right) 09/30/2023 68 0.852 -0.7 0.001 (0.2%)# 0.002 (0.3%)# 06/25/2021 66 0.849 -0.8 -0.001 (-0.1%) -0.001 (-0.1%) 08/14/2018 63 0.850 -0.8 -- *Denotes significance at 95% confidence level, LSC for AP Spine = 0.022 g/cm2, LSC for Total Hip = 0.027 g/cm2 # Denotes dissimilar scan types or analysis methods Impression: The patient has low bone mass, based on the Left Femoral Neck T-score. The patient has an estimated ten-year risk of hip fracture of 1.2% and an estimated ten-year risk of major fracture of 9.4%, based on the WHO FRAX algorithm. No significant bone loss was observed. Discussion: BONE DENSITY IS LOW AT ONE OR MORE SKELETAL SITES. This patient's lowest T-score is low at one or more skeletal sites. It meets the World Health Organization's (WHO) criteria for low bone mass (T-score between -1.0 and -2.5). The patient's 10-year risk of fracture as calculated by FRAX is less than the threshold where pharmacological therapy is recommended by the National Osteoporosis Foundation (NOF). However, all treatment decisions require clinical judgment and consideration of individual patient factors, including patient preferences, comorbidities, previous drug use, risk factors not captured in the FRAX model (e.g., frailty, falls, vitamin D deficiency, increased bone turnover, interval significant decline in bone density) and possible under or overestimation of fracture risk by FRAX. The patient should follow a healthful lifestyle (good nutrition with adequate calcium and vitamin D, and appropriate weight-bearing exercise). Follow-Up: Consider repeating this study in 2 to 3 years to reassess this patient's status, or sooner if there is some new clinical indication. Reported by: ADALGISA MIRANDA M.D. on 09/30/2023 3:18:00 PM.
== END ==
PROVIDERS: PCP Family Medicine; Referring Provider Family Medicine; Visit Provider Family Medicine
DX: Z12.31 Encounter for screening mammogram for malignant neoplasm of breast (principal); M85.852 Other specified disorders of bone density and structure, left thigh; Z80.3 Family history of malignant neoplasm of breast; M85.851 Other specified disorders of bone density and structure, right thigh; Z78.0 Asymptomatic menopausal state
CPT/HCPCS: 77063; 77067; 77080

== ENCOUNTER → 2024-05-25 11:12 | Outpatient (CLI) | payer OTHER, MEDICARE, SELFPAY ==
--- NOTE | 2024-05-25 11:18 | DI.RAD.S_ITS ---
PROCEDURE: XR LUMBAR SPINE MIN 4V COMPARISON: None. INDICATIONS: Radiculopathy, lumbar region FINDINGS: Are 5 lumbar type vertebral bodies. Vertebral body height is maintained. Mild loss of intervertebral disc space intra L3-4. Remaining disc spaces appear maintained. No lytic or blastic lesions. Pedicles are intact. Upright lateral images of flexion, extension and neutral show no motion or subluxation. IMPRESSION: Mild degenerative disc disease at L3-4. Dictated by: Bruno Ramon M.D. on 05/25/2024 at 14:19 Approved by: Bruno Ramon M.D. on 05/25/2024 at 14:23
== END ==
PROVIDERS: PCP Family Medicine; Referring Provider Family Medicine; Visit Provider Family Medicine
DX: M54.16 Radiculopathy, lumbar region (principal)
CPT/HCPCS: 72110

== ENCOUNTER 2025-09-01 05:52 | Emergency (ER) | payer MEDICARE, SELFPAY ==
[2025-09-01 06:00] VITALS: BP 123/80; PULSE 75; RESP 17; TEMP 36.5; O2SAT 98; BMI 27.4
--- NOTE | 2025-09-01 06:12 | ED.EXTPRO ---
HPI - Extremity Problem General Chief complaint: Extremity Problem,Nontraumatic Stated complaint: Poss DVT in LT Leg 3 wks, on blood thinners Time Seen by Provider: 09/01/25 06:11 Source: patient Mode of arrival: Ambulatory History of Present Illness HPI Narrative: 70-year-old female patient with a history of atrial fibrillation who complains of waxing and waning pain in the left medial thigh for 3 weeks with no injury. She is worried about a DVT. She is on Pradaxa Related Data Home Medications ?Medication ?Instructions ?Recorded ?Confirmed dabigatran etexilate 150 mg 150 mg PO BID 09/01/25 09/01/25 capsule (Pradaxa) flecainide 100 mg tablet 100 mg PO Q12H PRN atrial 09/01/25 09/01/25 fibrillation Previous Rx's ?Medication ?Instructions ?Recorded diltiazem HCl 180 mg 180 mg PO QAM #30 caps 05/30/25 capsule,extended release 24 hr (Cardizem CD) Allergies Allergy/AdvReac Type Severity Reaction Status Date / Time No Known Drug Allergies Allergy Verified 09/01/25 05:57 Review of Systems Review of Systems ROS Unobtainable: All systems reviewed & are unremarkable except as noted in HPI and below Musculoskeletal Musculoskeletal: Reports as per HPI Patient History Medical History (Updated 09/01/25 @ 06:56 by Emmanuel Snow MD) On hormone replacement therapy Surgical History History of gynecologic surgery (03/12/21) Social History household members: spouse alcohol intake: current Smoking Status: Never smoker alcohol intake frequency: 0-2 drinks per day Alcohol type: wine Exam Narrative Exam Narrative: General: Alert and conversant. No distress. Appears well nourished and well hydrated Lungs: Nonlabored respiration. Musculoskeletal: Tenderness to deep palpation in the left medial thigh with no cord or mass. No swelling or erythema. Range of motion is nontender. Otherwise Exam of the extremities, axial spine and ribcage reveals no deformity, bony tenderness or swelling. Range of motion intact Neuro: Alert and oriented. Cranial nerves, motor, sensory and cerebellar all grossly intact. No focal deficit Skin: Warm and normal color. No rashes Psychological: Normal affect and interaction. No evidence of delusion or psychosis. Normal mood. Initial Vital Signs Initial Vital Signs: Vital Signs Temperature 97.7 F 09/01/25 06:00 Pulse Rate 75 09/01/25 06:00 Respiratory Rate 17 09/01/25 06:00 Blood Pressure 123/80 09/01/25 06:00 Pulse Oximetry 98 09/01/25 06:00 Oxygen Delivery Method Room Air 09/01/25 06:00 Course Orders Ordered: ED Orders 09/01/25 06:30 CBC Auto Diff [Complete Blood Count AUTO DIFF] Stat D Dimer Stat Vital Signs Vital signs: Vital Signs - 8 hr 09/01/25 06:00 Temperature 97.7 F Pulse Rate 75 Respiratory Rate 17 Blood Pressure 123/80 Pulse Oximetry 98 Oxygen Delivery Method Room Air MDM - Extremity (Nontraumatic) Lab Data Attestation: I reviewed the patient's lab results. 09/01/25 06:30 Labs: Lab Results 09/01/25 Range/Units 06:30 WBC 5.9 (4.5-11.0) X10^3/uL RBC 4.27 (4.0-5.2) X10^6/uL Hgb 13.5 (12.0-16.0) g/dL Hct 39.7 (36-46) % MCV 92.9 (80-100) fL MCH 31.7 (26-34) PG MCHC 34.1 (30-36) % RDW 12.7 (11.6-14.8) % Plt Count 237 (150-400) X10^3/uL Neut % (Auto) 60.6 (50-75) % Lymph % (Auto) 26.5 (25-40) % [place] % (Auto) 8.2 (3-14) % Eos % (Auto) 3.7 (2-4) % Baso % (Auto) 1.0 (0-2) % Neut # (Auto) 3600 (7132-6463) /uL Lymph # (Auto) 1600 (3559-6544) /uL [place] # (Auto) 500 (0-900) /uL Eos # (Auto) 200 (0-450) /uL Baso # (Auto) 100 (0-100) /uL D-Dimer < 215 (<500) ng/ml MDM Narrative Medical decision making narrative: Patient has left medial thigh pain for 3 weeks with no known injury but negative D-dimer and CBC. This is not appear to be vascular or infectious. Possibly muscle or ligamentous sprain or strain. Less likely neuropathic. Does not need further workup in the ER. Plan is cold or warm packs and xjxc-uow-uprhbcs pain medicine. Follow up with primary care if not improving. Discharge Plan Departure Patient Disposition: Home Clinical Impression: Left thigh pain Instructions: Muscle Strain Activity Restrictions/Additional Instructions: Assessment: Medial left thigh pain of unknown cause. Based on exam and lab does not appear to be infection or clot. Possible muscle strain, ligament sprain or nerve pain. Plan: Ibuprofen and Tylenol and possible cold or warm packs. Follow up with your doctor if not improving. Prescriptions: No Action diltiazem HCl [Cardizem CD] 180 mg capsule,extended release 24hr 180 mg PO QAM Qty: 30 0RF dabigatran etexilate [Pradaxa] 150 mg capsule 150 mg PO BID flecainide 100 mg tablet 100 mg PO Q12H PRN (Reason: atrial fibrillation) Referrals: Alessandra Cortés MD [Primary Care Provider, Family Practice] Stand Alone Forms: Patient Portal/API
[2025-09-01 06:42] LABS: Add Manual Diff / Slide Review NO; Hematocrit 39.7 % (36-46); Hemoglobin 13.5 g/dL (12.0-16.0); Lymphocytes Absolute Auto 1600 /uL (1100-4500); Mean Corpuscular HGB Conc 34.1 % (30-36); Mean Corpuscular Hemoglobin 31.7 PG (26-34); Mean Corpuscular Volume 92.9 fL (80-100); Platelet Count 237 X10^3/uL (150-400)
== END 2025-09-01 07:00 | disposition home or self-care (01) ==
PROVIDERS: Emergency Provider Emergency Medicine; Family Provider Family Medicine; PCP Family Medicine
DX: M79.652 Pain in left thigh (principal); Z79.01 Long term (current) use of anticoagulants
CPT/HCPCS: 85025; 85379; 99281; 99283